=== PATIENT | male | born 1960 | race Caucasian/White ===

== ENCOUNTER 2016-11-16 15:11 | Emergency (ER) | payer OTHER ==
[~2016-11-16] VITALS: Ht 175.3 cm; Wt 72.7 kg
[2016-11-16 15:16] VITALS: BP 101/82
[2016-11-16] MEDS ORDERED: SOFO1TAB PO (15:42)
[2016-11-16] MEDS ORDERED: BUPR-93 PO (15:42)
[2016-11-16] MEDS ORDERED: LEDI1TAB PO (15:43)
== END 2016-11-16 17:06 | disposition home or self-care (01) ==
LOC: EMS 15:13
DX: Z76.0 Encounter for issue of repeat prescription (principal); F32.9 Major depressive disorder, single episode, unspecified; F20.9 Schizophrenia, unspecified; F17.210 Nicotine dependence, cigarettes, uncomplicated
CPT/HCPCS: 99284

== ENCOUNTER 2016-11-21 08:58 | Emergency (ER) | payer OTHER ==
[~2016-11-21] VITALS: Ht 175.3 cm; Wt 72.7 kg
[~2016-11-21 08:58] MED LIST: BUPR-93 PO; LEDI1TAB PO; SOFO1TAB PO
[2016-11-21 09:35] VITALS: BP 125/88
== END 2016-11-21 09:37 | disposition home or self-care (01) ==
LOC: EMS 09:00
DX: Z76.0 Encounter for issue of repeat prescription (principal); F20.9 Schizophrenia, unspecified; F32.9 Major depressive disorder, single episode, unspecified; F17.210 Nicotine dependence, cigarettes, uncomplicated
CPT/HCPCS: 99281

== ENCOUNTER 2016-11-29 01:51 | Inpatient (IN) | payer MEDICAID, OTHER ==
[~2016-11-29] VITALS: Ht 182.9 cm; Wt 67.3 kg
[2016-11-29] MEDS ORDERED: LORazepam 2 MG/ML VIAL IM ONE (02:30)
[2016-11-29] MEDS ORDERED: DiphenhydrAMINE HCL 50 MG/ML VIAL IM ONE (02:30)
[2016-11-29] MEDS ORDERED: HALOPERIDOL LACTATE 5 MG/ML VIAL IM ONE (02:30)
[2016-11-29 02:48] LABS: BASOPHILS # (AUTO) 0.03 K/uL (0.00-0.20); BASOPHILS % (AUTO) 0.2 % (0.0-2.0); EOSINOPHILS # (AUTO) 0.11 K/uL (0.00-0.70); EOSINOPHILS % (AUTO) 0.83 % (1.0-6.0); HEMATOCRIT 43.9 % (41-53); HEMOGLOBIN 14.2 g/dL (13.5-17.5); LYMPHOCYTES # (AUTO) 1.4 K/uL (1.0-4.8); LYMPHOCYTES % (AUTO) 10.6 % (22.0-44.0); MEAN CORPUSCULAR HEMOGLOBIN 29.1 pg (26.0-34.0); MEAN CORPUSCULAR HGB CONC 32.4 G/dL (31.0-37.0); MEAN CORPUSCULAR VOLUME 90 fL (80-100); MONOCYTES # (AUTO) 1.1 K/uL (0.1-1.0); MONOCYTES % (AUTO) 8.5 % (2.0-9.0); NEUTROPHILS # (AUTO) 10.2 K/uL (1.8-7.7); NEUTROPHILS % (AUTO) 79.8 % (40.0-70.0); PLATELET COUNT (AUTO) 344 K/uL (150-450); RED BLOOD CELL COUNT(AUTO) 4.89 MIL/uL (4.50-5.90); RED CELL DISTRIBUTION WIDTH 13.7 % (11.5-14.5); WHITE BLOOD COUNT (AUTO) 12.8 K/uL (4.5-11.0)
[2016-11-29 03:01] LABS: ANION GAP 5 mmol/L (8-16); CALCIUM, TOTAL 9.3 mg/dL (8.8-10.5); CARBON DIOXIDE 31 mmol/L (22-29); CHLORIDE 109 mmol/L (98-107); CREATININE 1.17 mg/dL (0.60-1.30); GLOMERULAR FILTR. RATE CALC > 60 mL/min (>60); POTASSIUM 3.6 mmol/L (3.5-5.1); SODIUM SERUM 145 mmol/L (136-145); UREA NITROGEN, BLOOD 16 mg/dL (7-18)
[2016-11-29 03:06] LABS: ALANINE AMINOTRANSFERASE 37 U/L (12-78); ALBUMIN 4.1 g/dL (3.4-5.0); ASPARTATE AMINOTRANSFERASE 25 U/L (15-37); BILIRUBIN,TOTAL 0.7 mg/dL (0.1-1.0); TOTAL PROTEIN, SERUM 7.6 g/dL (6.4-8.2)
[2016-11-29 04:51] LABS: CHOL/HDL RATIO 2.4 (4.2-7.3)
[2016-11-29] MEDS: LORazepam 2 MG TABLET PO PRN ×2 (08:44→15:28)
[2016-11-29] MEDS: HALOPERIDOL 5 MG TABLET PO PRN ×2 (08:44→15:28)
[2016-11-29 12:10] VITALS: BP 133/87
[2016-11-29 16:00] VITALS: BP 124/73
[2016-11-29] MEDS: BACITRACIN 28.4 GM OINTMENT TP SCH (17:06)
[2016-11-29] MEDS: ZOLPIDEM TARTRATE 10 MG TABLET PO PRN (22:07)
[2016-11-30 01:00] VITALS: BP 122/78
[2016-11-30] MEDS: HALOPERIDOL 5 MG TABLET PO PRN ×2 (01:06→08:37)
[2016-11-30] MEDS: LORazepam 2 MG TABLET PO PRN ×2 (01:06→08:36)
[2016-11-30] MEDS: BACITRACIN 28.4 GM OINTMENT TP SCH ×2 (08:36→17:01)
[2016-11-30] MEDS: OLANZapine 10 MG RAPDIS TABLET PO SCH ×2 (09:36→17:01)
[2016-11-30 12:00] VITALS: BP 117/73
[2016-11-30 16:00] VITALS: BP 119/77
[2016-11-30] MEDS ORDERED: IBUPROFEN 400 MG TABLET PO PRN (21:30)
[2016-11-30] MEDS ORDERED: ACETAMINOPHEN 325 MG TABLET PO PRN (21:30)
[2016-12-01 06:07] VITALS: BP 100/60
[2016-12-01 08:32] VITALS: BP 120/74
[2016-12-01] MEDS: LORazepam 2 MG TABLET PO PRN ×2 (08:56→17:00)
[2016-12-01] MEDS: OLANZapine 10 MG RAPDIS TABLET PO SCH ×2 (08:56→17:00)
[2016-12-01] MEDS: BACITRACIN 28.4 GM OINTMENT TP SCH ×2 (08:59→17:01)
[2016-12-01 12:00] VITALS: BP 102/58
[2016-12-01 16:00] VITALS: BP 116/65
[2016-12-02 01:30] VITALS: BP 121/68
[2016-12-02 08:00] VITALS: BP 135/81
[2016-12-02] MEDS: OLANZapine 10 MG RAPDIS TABLET PO SCH ×2 (08:13→16:25)
[2016-12-02] MEDS: LORazepam 2 MG TABLET PO PRN ×2 (08:13→20:03)
[2016-12-02] MEDS: BACITRACIN 28.4 GM OINTMENT TP SCH ×2 (08:13→16:24)
[2016-12-02 12:00] VITALS: BP 110/69
[2016-12-02 16:07] VITALS: BP 125/73
[2016-12-02] MEDS: ZOLPIDEM TARTRATE 10 MG TABLET PO PRN (22:20)
[2016-12-03 07:15] VITALS: BP 133/66
[2016-12-03] MEDS: OLANZapine 10 MG RAPDIS TABLET PO SCH ×2 (09:39→17:12)
[2016-12-03] MEDS: LORazepam 2 MG TABLET PO PRN ×2 (09:39→17:12)
[2016-12-03] MEDS: BACITRACIN 28.4 GM OINTMENT TP SCH ×2 (09:39→17:12)
[2016-12-04 06:10] VITALS: BP 128/70
[2016-12-04] MEDS: HALOPERIDOL 5 MG TABLET PO PRN ×2 (08:59→16:28)
[2016-12-04] MEDS: OLANZapine 10 MG RAPDIS TABLET PO SCH ×2 (08:59→16:30)
[2016-12-04] MEDS: BACITRACIN 28.4 GM OINTMENT TP SCH ×2 (08:59→16:29)
[2016-12-04] MEDS: LORazepam 2 MG TABLET PO PRN ×2 (08:59→16:28)
[2016-12-05 03:02] VITALS: BP 104/73
[2016-12-05] MEDS: OLANZapine 10 MG RAPDIS TABLET PO SCH ×2 (08:51→16:58)
[2016-12-05] MEDS: BACITRACIN 28.4 GM OINTMENT TP SCH ×2 (08:51→16:58)
[2016-12-06 01:40] VITALS: BP 128/74
[2016-12-06 08:35] VITALS: BP 112/76
[2016-12-06] MEDS: OLANZapine 10 MG RAPDIS TABLET PO SCH ×2 (09:12→16:28)
[2016-12-06] MEDS: BACITRACIN 28.4 GM OINTMENT TP SCH ×2 (09:12→16:46)
[2016-12-06] MEDS: LORazepam 2 MG TABLET PO PRN ×2 (09:12→16:29)
[2016-12-06 13:25] VITALS: BP 115/83
[2016-12-06] MEDS: HALOPERIDOL 5 MG TABLET PO PRN (16:38)
[2016-12-07 01:41] VITALS: BP 104/68
[2016-12-07] MEDS: HALOPERIDOL 5 MG TABLET PO PRN (04:06)
[2016-12-07] MEDS: LORazepam 2 MG TABLET PO PRN ×2 (04:06→09:19)
[2016-12-07 08:43] VITALS: BP 121/75
[2016-12-07] MEDS: OLANZapine 10 MG RAPDIS TABLET PO SCH ×2 (09:19→16:27)
[2016-12-07] MEDS: BACITRACIN 28.4 GM OINTMENT TP SCH ×2 (09:20→16:27)
[2016-12-07 16:27] VITALS: BP 124/71
[2016-12-08 05:27] VITALS: BP 101/63
[2016-12-08 08:19] LABS: HEMOGLOBIN A1C 5.3 % (4.5-6.2)
[2016-12-08 08:31] LABS: CHOL/HDL RATIO 3.3 (4.2-7.3); THYROID STIMULATING HORMONE 1.25 uIU/mL (0.36-3.74)
[2016-12-08] MEDS: BACITRACIN 28.4 GM OINTMENT TP SCH ×2 (08:51→16:30)
[2016-12-08] MEDS: OLANZapine 10 MG RAPDIS TABLET PO SCH ×2 (08:51→16:30)
[2016-12-08] MEDS: HALOPERIDOL 5 MG TABLET PO PRN ×2 (09:27→16:30)
[2016-12-08] MEDS: LORazepam 2 MG TABLET PO PRN ×2 (09:27→16:30)
[2016-12-08 16:00] VITALS: BP 131/72
[2016-12-09] MEDS: OLANZapine 10 MG RAPDIS TABLET PO SCH ×2 (08:52→16:58)
[2016-12-09] MEDS: HALOPERIDOL 5 MG TABLET PO PRN ×2 (08:52→20:46)
[2016-12-09] MEDS: BACITRACIN 28.4 GM OINTMENT TP SCH ×2 (08:53→16:59)
[2016-12-09 09:17] VITALS: BP 100/70
[2016-12-09] MEDS ORDERED: LORazepam 2 MG/ML VIAL ONE (12:09)
[2016-12-09] MEDS ORDERED: HALOPERIDOL LACTATE 5 MG/ML VIAL ONE (12:10)
[2016-12-09] MEDS ORDERED: DiphenhydrAMINE HCL 50 MG/ML VIAL ONE (12:10)
[2016-12-09 16:00] VITALS: BP 112/78
[2016-12-10 02:00] VITALS: BP 116/76
[2016-12-10] MEDS: OLANZapine 10 MG RAPDIS TABLET PO SCH ×2 (09:05→16:44)
[2016-12-10] MEDS ORDERED: GuaiFENesin/D-METHORPHAN [SUGAR-FREE] 200-20MG/10 ML SYRUP UDCUP PO PRN (12:30)
[2016-12-10 12:31] VITALS: BP 106/64
[2016-12-10 16:00] VITALS: BP 124/68
[2016-12-10] MEDS: DIVALPROEX SODIUM 500 MG DR TABLET PO SCH (20:45)
[2016-12-11 08:07] VITALS: BP 120/77
[2016-12-11] MEDS: OLANZapine 10 MG RAPDIS TABLET PO SCH ×2 (09:00→16:33)
[2016-12-11] MEDS: DIVALPROEX SODIUM 500 MG DR TABLET PO SCH ×2 (09:00→20:15)
[2016-12-11] MEDS: HALOPERIDOL 5 MG TABLET PO PRN (12:49)
[2016-12-11 16:04] VITALS: BP 107/76
[2016-12-12 05:30] VITALS: BP 109/63
[2016-12-12 09:05] VITALS: BP 112/78
[2016-12-12] MEDS: OLANZapine 10 MG RAPDIS TABLET PO SCH ×2 (09:45→16:04)
[2016-12-12] MEDS: DIVALPROEX SODIUM 500 MG DR TABLET PO SCH ×2 (09:45→20:14)
[2016-12-12 16:00] VITALS: BP 122/79
[2016-12-13 02:10] VITALS: BP 108/74
[2016-12-13 08:07] VITALS: BP 110/76
[2016-12-13] MEDS: DIVALPROEX SODIUM 500 MG DR TABLET PO SCH ×2 (09:00→21:05)
[2016-12-13] MEDS: OLANZapine 10 MG RAPDIS TABLET PO SCH ×2 (09:00→17:16)
[2016-12-13 16:00] VITALS: BP 130/83
[2016-12-14 04:19] VITALS: BP 114/68
[2016-12-14 08:07] VITALS: BP 115/67
[2016-12-14] MEDS: DIVALPROEX SODIUM 500 MG DR TABLET PO SCH ×2 (09:00→20:35)
[2016-12-14] MEDS: OLANZapine 10 MG RAPDIS TABLET PO SCH ×2 (09:00→16:42)
[2016-12-14 16:00] VITALS: BP 112/68
[2016-12-15 00:49] VITALS: BP 118/66
[2016-12-15] MEDS: DIVALPROEX SODIUM 500 MG DR TABLET PO SCH ×2 (09:00→20:47)
[2016-12-15] MEDS: OLANZapine 10 MG RAPDIS TABLET PO SCH ×2 (09:15→16:14)
[2016-12-15 16:00] VITALS: BP 113/68
[2016-12-16] MEDS: DIVALPROEX SODIUM 500 MG DR TABLET PO SCH (09:00)
[2016-12-16 09:49] VITALS: BP 102/61
[2016-12-16] MEDS: OLANZapine 10 MG RAPDIS TABLET PO SCH ×2 (10:08→17:03)
[2016-12-17] MEDS: OLANZapine 10 MG RAPDIS TABLET PO SCH ×2 (09:23→16:40)
[2016-12-17 16:08] VITALS: BP 107/67
[2016-12-18] MEDS: OLANZapine 10 MG RAPDIS TABLET PO SCH (08:43)
[2016-12-18 09:55] VITALS: BP 106/78
[2016-12-18] MEDS ORDERED: OLAN10TA3 PO (14:20)
[2016-12-18 14:36] VITALS: BP 118/72
== END 2016-12-18 15:10 | disposition home or self-care (01) | DRG 751 ==
LOC: EMS 01:55 → B3A 10:55
PROVIDERS: ADMIT Psychiatry & Neurology Child & Adolescent Psychiatry; ATTEND Psychiatry & Neurology Child & Adolescent Psychiatry
DX: F29 Unspecified psychosis not due to a substance or known physiological condition (principal); F20.9 Schizophrenia, unspecified; F32.9 Major depressive disorder, single episode, unspecified; F10.10 Alcohol abuse, uncomplicated; B19.20 Unspecified viral hepatitis C without hepatic coma; F17.210 Nicotine dependence, cigarettes, uncomplicated; F41.9 Anxiety disorder, unspecified; F12.10 Cannabis abuse, uncomplicated; F15.90 Other stimulant use, unspecified, uncomplicated; Z79.899 Other long term (current) drug therapy; Z71.6 Tobacco abuse counseling
CPT/HCPCS: 83036; 84439; 84443; 96372; 99291; G0480; J1200; J1630; J2060

== ENCOUNTER 2017-03-30 17:49 | Emergency (ER) | payer MEDICAID, OTHER ==
[~2017-03-30] VITALS: Ht 175.3 cm; Wt 72.7 kg
[~2017-03-30 17:49] MED LIST changes: -BUPR-93 PO; -LEDI1TAB PO; +OLAN10TA3 PO; -SOFO1TAB PO
[2017-03-30] MEDS ORDERED: BUPR75 PO (17:54)
[2017-03-30 19:50] LABS: BASOPHILS % (AUTO) 0.4 % (0.0-2.0); HEMATOCRIT 41.3 % (41-53); HEMOGLOBIN 13.8 g/dL (13.5-17.5); LYMPHOCYTES % (AUTO) 34.2 % (22.0-44.0); MEAN CORPUSCULAR HEMOGLOBIN 29.5 pg (26.0-34.0); MEAN CORPUSCULAR HGB CONC 33.4 G/dL (31.0-37.0); MEAN CORPUSCULAR VOLUME 88 fL (80-100); MONOCYTES # (AUTO) 0.6 K/uL (0.1-1.0); MONOCYTES % (AUTO) 7.1 % (2.0-9.0); NEUTROPHILS # (AUTO) 4.8 K/uL (1.8-7.7); NEUTROPHILS % (AUTO) 54.3 % (40.0-70.0); PLATELET COUNT (AUTO) 267 K/uL (150-450); RED BLOOD CELL COUNT(AUTO) 4.67 MIL/uL (4.50-5.90); RED CELL DISTRIBUTION WIDTH 13.3 % (11.5-14.5); WHITE BLOOD COUNT (AUTO) 8.8 K/uL (4.5-11.0)
[2017-03-30 19:55] LABS: ANION GAP 7 mmol/L (8-16); CARBON DIOXIDE 27 mmol/L (22-29); CHLORIDE 104 mmol/L (98-107); CREATININE 0.77 mg/dL (0.60-1.30); GLOMERULAR FILTR. RATE CALC > 60 mL/min (>60); POTASSIUM 3.9 mmol/L (3.5-5.1); SODIUM SERUM 138 mmol/L (136-145); UREA NITROGEN, BLOOD 5 mg/dL (7-18)
[2017-03-30] MEDS ORDERED: LORazepam 2 MG TABLET PO ONE (20:00)
[2017-03-30 20:01] LABS: ALANINE AMINOTRANSFERASE 24 U/L (12-78); ALBUMIN 3.8 g/dL (3.4-5.0); ASPARTATE AMINOTRANSFERASE 22 U/L (15-37); TOTAL PROTEIN, SERUM 7.1 g/dL (6.4-8.2)
[2017-03-30 20:15] VITALS: BP 123/84
== END 2017-03-30 20:17 | disposition home or self-care (01) ==
LOC: EMS 17:50
DX: F20.9 Schizophrenia, unspecified (principal); B19.20 Unspecified viral hepatitis C without hepatic coma; F32.9 Major depressive disorder, single episode, unspecified; F41.9 Anxiety disorder, unspecified; Z87.891 Personal history of nicotine dependence
CPT/HCPCS: 36415; 80053; 80307; 82962; 85025; 99284; G0480

== ENCOUNTER 2023-04-16 19:32 | Emergency (ER) | payer OTHER ==
[~2023-04-16] VITALS: Ht 177.8 cm; Wt 72.0 kg
[~2023-04-16 19:32] MED LIST changes: +BUPR-344 PO; -OLAN10TA3 PO
[2023-04-16 20:28] VITALS: TEMP 98.5
[2023-04-16] MEDS ORDERED: CLINDAMYCIN HCL 150 MG CAPSULE PO ONE (21:30)
[2023-04-16] MEDS ORDERED: IBUPROFEN 400 MG TABLET PO ONE (21:30)
[2023-04-16] MEDS ORDERED: CLIN-26 PO (21:40)
[2023-04-16] MEDS ORDERED: IBUP-1506 PO (21:40)
[2023-04-16 22:06] VITALS: BP 138/95; PULSE 80; RESP 18
== END 2023-04-16 23:00 | disposition home or self-care (01) ==
LOC: EMS 19:33
DX: L03.032 Cellulitis of left toe (principal); F32.A Depression, unspecified; F20.9 Schizophrenia, unspecified; Z87.891 Personal history of nicotine dependence; Z88.0 Allergy status to penicillin
CPT/HCPCS: 99283